=== PATIENT | male | born 1975 | race Caucasian/White ===

== ENCOUNTER 2017-11-10 20:40 | Observation (INO) | payer OTHER ==
[2017-11-10] MEDS ORDERED: Sodium Chloride 0.9% 1,000 ML IV ONE (20:48)
[2017-11-10] MEDS ORDERED: Aspirin 81 MG Tab.Chew PO ONE (20:48)
--- NOTE | 2017-11-10 20:52 | EDM.PDOC ---
ED HPI GENERAL MEDICAL PROBLEM - General Stated Complaint: CHEST PAIN Time Seen by Provider: 11/10/17 20:47 Source of Information: Reports: Patient History Limitations: Reports: No Limitations - History of Present Illness INITIAL COMMENTS - FREE TEXT/NARRATIVE: HISTORY AND PHYSICAL: History of present illness: Patient is a 42-year-old male who presents to the emergency room today with complaints of chest pain, nausea and shortness of breath 45 minutes prior to arrival. The chest pain is mid/left sternal chest pain that does not radiate into the neck, shoulder or back. Denies any headache, change in vision, diaphoresis, abdominal pain, vomiting or diarrhea. Patient states he has never been evaluated for chest pain previously. He states that "occasionally will get fluttering in my chest" which he states resolves within several seconds. Has a history of hypertension. Current BP is 204/124 upon arrival. 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 I usually can sit down and relax a while and it will go down enough to pass". He states he has not seen a primary care doctor in many years. He has never been prescribed any antihypertensive medications. Has no history of any other medical problems. Does use chewing tobacco daily x 30 years. Does not know is father's family health history. But no known family history of heart disease. Review of systems: As per history of present illness and below otherwise all systems reviewed and negative. Past medical history: As per history of present illness and as reviewed below otherwise noncontributory. Surgical history: As per history of present illness and as reviewed below otherwise noncontributory. Social history: No reported history of drug or alcohol abuse. Family history: As per history of present illness and as reviewed below otherwise noncontributory. Physical exam: Gen.: Well-developed and well-nourished 42-year-old male. Alert and oriented. Appears in no acute distress. HEENT: Atraumatic, normocephalic, pupils reactive, negative for conjunctival pallor or scleral icterus, mucous membranes moist, throat clear, neck supple, nontender, trachea midline. Lungs: Clear to auscultation, breath sounds equal bilaterally, chest nontender. Heart: S1S2, regular rate and rhythm without overt murmurs Abdomen: Soft, nondistended, nontender. Negative for masses or hepatosplenomegaly. Negative for costovertebral tenderness. Pelvis: Stable nontender. Genitourinary: Deferred. Rectal: Deferred. Extremities: Atraumatic, moves all extremities per self with full range of motion without difficulty or deficits, negative for cords or calf pain. Neurovascular unremarkable. Neuro: Awake, alert, oriented. Cranial nerves II through XII unremarkable. Cerebellum unremarkable. Motor and sensory unremarkable throughout. Exam nonfocal. After receiving the 3 doses of nitroglycerin his pain has gone from a 5 out of 10-3 out of 10. Current blood pressure is 166/116. Patient states he is happy with that result/reading as "it hasn't been that low in a long time". Vasotec 1.25 mg as been ordered. We'll continue to monitor vitals. Lab results are still pending. CBC, CMP, and troponin are negative. EKG was reviewed by me and Dr. Shepherd. CXR Current blood pressure is 168/105. Patient states that his pain "comes and goes ". At this time I did offer the patient and admission for chest pain rule out VA. He does have risk factors, and would feel more comfortable keeping him as an observation. Especially with his elevated blood pressure. Patient states he needs time to think and has to call his boss at this time. Patient is agreeable to stay overnight for observation. Her Adama was consulted on this case. He is agreeable to admit this patient for observation Diagnostics: CBC, CMP, troponin, EKG, one view chest Therapeutics: endorsement clerk, IV fluid, aspirin, nitroglycerin sublingual 3 doses Vasotec IV Impression: Chest pain, rule out VA Plan: Dr. Galan has agreed to admit this patient for observation on telemetry Definitive disposition and diagnosis as appropriate pending reevaluation and review of above. Onset: Today Duration: Minutes: (45 minutes prior to arrival) Location: Reports: Chest Improves with: Reports: None Worsens with: Reports: None Associated Symptoms: Reports: Chest Pain, Nausea/Vomiting, Shortness of Breath. Denies: Confusion, Cough, cough w sputum, Diaphoresis, Fever/Chills, Headaches , Loss of Appetite, Malaise, Rash, Seizure, Syncope, Weakness Treatments SUB ACUTE CARE NURSE: Denies: Aspirin chest Pain Score (Numeric/FACES): 6 - Related Data Allergies Allergy/AdvReac Type Severity Reaction Status Date / Time onion Allergy Swelling Verified 11/10/17 20:52 Home Meds: Home Meds . [No Known Home Meds] 11/10/17 [History] ED ROS GENERAL - Review of Systems Review Of Systems: ROS reveals no pertinent complaints other than HPI. ED EXAM, GENERAL - Physical Exam Exam: See Below (See dictation) Course - Vital Signs Last Recorded V/S: Last Vital Signs Temp 97 F 11/10/17 20:52 Pulse 82 11/10/17 21:53 Resp 18 11/10/17 21:53 BP 166/102 H 11/10/17 21:53 Pulse Ox 97 11/10/17 21:53 - Orders/Labs/Meds Orders: Active Orders 24 hr Category Date Time Status Admission Status [Patient Status] [ADT] Stat ADT 11/10/17 21:55 Ordered EKG Documentation Completion [RC] STAT Care 11/10/17 20:48 Active Chest 1V Frontal [CR] Stat Exams 11/10/17 20:48 Taken TROPONIN I [CHEM] Timed Lab 11/11/17 03:00 Ordered TROPONIN I [CHEM] Timed Lab 11/11/17 09:00 Ordered Labs: Laboratory Tests 11/10/17 11/10/17 Range/Units 20:50 20:50 WBC 7.00 (4.0-11.0) K/uL RBC 4.97 (4.50-5.90) M/uL Hgb 14.9 (13.0-17.0) g/dL Hct 44.6 (38.0-50.0) % MCV 89.7 (80.0-98.0) fL MCH 30.0 (27.0-32.0) pg MCHC 33.4 (31.0-37.0) g/dL RDW Std Deviation 43.1 (28.0-62.0) fl RDW Coeff of Barbra 13 (11.0-15.0) % Plt Count 203 (150-400) K/uL MPV 9.70 (7.40-12.00) fL Neut % (Auto) 55.1 (48.0-80.0) % Lymph % (Auto) 30.9 (16.0-40.0) % [place] % (Auto) 11.3 (0.0-15.0) % Eos % (Auto) 2.3 (0.0-7.0) % Baso % (Auto) 0.4 (0.0-1.5) % Neut # (Auto) 3.9 (1.4-5.7) K/uL Lymph # (Auto) 2.2 (0.6-2.4) K/uL [place] # (Auto) 0.8 (0.0-0.8) K/uL Eos # (Auto) 0.2 (0.0-0.7) K/uL Baso # (Auto) 0.0 (0.0-0.1) K/uL Nucleated RBC % 0.0 /100WBC Nucleated RBCs # 0 K/uL Sodium 141 (136-146) mmol/L Potassium 4.3 (3.5-5.1) mmol/L Chloride 106 (98-110) mmol/L Carbon Dioxide 25 (21-31) mmol/L BUN 13 (6.0-23.0) mg/dL Creatinine 1.3 (0.6-1.5) mg/dL Est Cr Clr Drug Dosing 77.23 mL/min Estimated GFR (MDRD) 60.0 ml/min Glucose 103 (60-110) mg/dL Calcium 9.2 (8.8-10.8) mg/dL Total Bilirubin 0.4 (0.1-1.5) mg/dL AST 22 (5-40) IU/L ALT 29 (8-54) IU/L Alkaline Phosphatase 92 (40-150) Troponin I < 0.10 (0.0-0.29) NG/ML Total Protein 7.7 (6.0-8.0) g/dL Albumin 4.2 (3.5-5.0) g/dL Globulin 3.5 (2.0-3.5) g/dL Albumin/Globulin Ratio 1.2 L (1.3-2.8) Meds: Medications Discontinued Medications Generic Name Dose Route Start Last Admin Trade Name Freq PRN Reason Stop Dose Admin Aspirin 324 mg 11/10/17 20:48 11/10/17 20:57 Aspirin PO 11/10/17 20:49 324 mg ONETIME ONE Administration Enalaprilat 1.25 mg 11/10/17 21:11 11/10/17 21:17 Vasotec Iv IVPUSH 11/10/17 21:12 1.25 mg ONETIME ONE Administration Sodium Chloride 1,000 mls @ 999 mls/hr 11/10/17 20:48 11/10/17 21:02 Normal Saline IV 11/10/17 21:48 999 mls/hr STAT ONE Administration Morphine Sulfate 2 mg 11/10/17 21:09 Morphine IV 11/10/17 21:10 ONETIME ONE Nitroglycerin 0.4 mg 11/10/17 20:53 11/10/17 21:06 Nitrostat SL 0.4 mg Q5M PRN Administration Chest Pain Departure - Departure Time of Disposition: 21:58 Disposition: Refer to Observation Clinical Impression: Chest pain, rule out acute myocardial infarction Hypertension Qualifiers: Hypertension type: essential hypertension Qualified Code(s): I10 - Essential ( primary) hypertension Referrals: PCP,None [Primary Care Provider] - - My Orders Last 24 Hours: My Active Orders 11/10/17 20:48 EKG Documentation Completion [RC] STAT Chest 1V Frontal [CR] Stat 11/10/17 21:55 Admission Status [Patient Status] [ADT] Stat 11/11/17 03:00 TROPONIN I [CHEM] Timed 11/11/17 09:00 TROPONIN I [CHEM] Timed - Assessment/Plan Last 24 Hours: My Active Orders 11/10/17 20:48 EKG Documentation Completion [RC] STAT Chest 1V Frontal [CR] Stat 11/10/17 21:55 Admission Status [Patient Status] [ADT] Stat 11/11/17 03:00 TROPONIN I [CHEM] Timed 11/11/17 09:00 TROPONIN I [CHEM] Timed
[2017-11-10] MEDS: Nitroglycerin 0.4 MG Tab.SL SL PRN ×3 (20:58→21:06)
[2017-11-10] MEDS ORDERED: Morphine 10 MG/ML Syringe IV ONE (21:09)
[2017-11-10] MEDS ORDERED: Enalaprilat 1.25 MG/ML SDV IVPUSH ONE (21:11)
[2017-11-10 21:26] LABS: CHLORIDE,CL 106 mmol/L (98-110); SODIUM,NA 141 mmol/L (136-146)
--- NOTE | 2017-11-11 08:01 | PCM.HP ---
H&P History of Present Illness - General Date of Service: 11/11/17 Admit Problem/Dx: Admission Diagnosis/Problem Admission Diagnosis/Problem Chest pain, rule out acute myocardial infarction Source of Information: Patient History Limitations: Reports: No Limitations - History of Present Illness Initial Comments - Free Text/Narative: This 42 ev old male with little pmh presented to the ED with concerns of midsternal chest pain that started around 8 pm that night. He reports he was sitting, not doing anything and started having sharp pain to his L anterior chest, that radiated to his LUQ and flank area then it settled in L anterior chest. He reported some nausea no vomiting, no SOB, no diaphoresis and no radiation to neck, jaw or L arm. The pain was relieved only by SL Nitro given in the ED, otherwise nothing else was helping his pain. He reports heartburn intermittently at home, but doesn't take anything daily for this, happens with choices in foods. He denies personal and family history of CAD, he is unaware of his paternal family history though. He reports having elevated BP "for years " but has never been started on anything and normal reports relaxing at DOT appointments and then he is able to pass. He has not seen a PCP in years. He reports social alcohol use. He chews daily and denies wanting to stop. In the ED labwork all WNL troponin negative. EKG SR no ST segment changes. BP was noted to be 204/104 on dmission to ED, it dropped to 150-160/90s with SL nitro. He was also given Vasotec in the ED as well. CXR negative. He was admitted for chets pain R/O ACS. chest Pain Score (Numeric/FACES): 5 - Related Data Allergies/Adverse Reactions: Allergies Allergy/AdvReac Type Severity Reaction Status Date / Time onion Allergy Swelling Verified 11/10/17 20:52 Home Medications: Home Meds Aspirin 81 mg PO DAILY #30 tab.chew 11/11/17 [Rx] Lisinopril [Prinivil] 10 mg PO DAILY #30 tablet 11/11/17 [Rx] Past Medical History HEENT History: Reports: None Cardiovascular History: Reports: Hypertension (never been treated for this.). Denies: Blood Clots/VTE/DVT, CAD, Heart Failure, High Cholesterol Respiratory History: Reports: None. Denies: COPD, PE Gastrointestinal History: Reports: None Genitourinary History: Reports: None Musculoskeletal History: Reports: None Neurological History: Reports: None Psychiatric History: Reports: Anxiety Endocrine/Metabolic History: Reports: None Hematologic History: Reports: None Immunologic History: Reports: None Oncologic (Cancer) History: Reports: None Dermatologic History: Reports: None - Infectious Disease History Infectious Disease History: Reports: None - Past Surgical History Musculoskeletal Surgical History: Reports: Shoulder Surgery Social & Family History - Family History Family Medical History: Noncontributory - Tobacco Use Smoking Status *Q: Never Smoker - Caffeine Use Caffeine Use: Reports: Coffee - Alcohol Use Days Per Week of Alcohol Use: 4 Number of Drinks Per Day: 2 Total Drinks Per Week: 8 - Recreational Drug Use Recreational Drug Use: No - Living Situation & Occupation Living situation: Reports: 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 Denies: Fever, Chills, Malaise, Weakness HEENT: Reports: No Symptoms. Denies: Headaches, Sinus Congestion, Sore Throat Pulmonary: Denies: Shortness of Breath, Wheezing, Cough, Sputum Cardiovascular: Reports: Chest Pain (on admission, no longer having. Did have sharp pain with sneezing.). Denies: Palpitations, Dyspnea on Exertion, Edema, Lightheadedness Gastrointestinal: Reports: No Symptoms. Denies: Black Stool, Bloody Stool, Distension, Flatus, Nausea, Vomiting Genitourinary: Reports: No Symptoms. Denies: Dysuria, Frequency Musculoskeletal: Reports: No Symptoms. Denies: Neck Pain, Shoulder Pain Psychiatric: Reports: No Symptoms. Denies: Confusion Hematologic/Lymphatic: Reports: No Symptoms. Denies: Anemia Exam - Exam Exam: See Below - Vital Signs Vital Signs: Last Vital Signs Temp 98.2 F 11/11/17 04:00 Pulse 61 11/11/17 04:00 Resp 18 11/11/17 04:00 BP 154/96 H 11/11/17 04:00 Pulse Ox 95 11/11/17 04:00 Weight: 129.501 kg - Exam General: Alert, Oriented, Cooperative HEENT: Conjunctiva Clear, Mucosa Moist & [employer], Posterior Pharynx Clear, Pupils Reactive Neck: Supple, Trachea Midline Lungs: Clear to Auscultation, Normal Respiratory Effort Cardiovascular: Regular Rate, Regular Rhythm, Normal S1, Normal S2, Other ( tenderness noted to L anterior chest to palpation, which reproduces pain he was feeling, but at a lower level now. ) GI/Abdominal Exam: Normal Bowel Sounds, Soft, Non-Tender, No Organomegaly, No Distention, No Abnormal Bruit, No Mass, Pelvis Stable Extremities: Normal Inspection, Normal Range of Motion, Non-Tender, No Pedal Edema, Normal Capillary Refill Neurological: Cranial Nerves Intact Neuro Extensive - Mental Status: Alert, Oriented x3 Neuro Extensive - Motor, Sensory, Reflexes: CN II-XII Intact, Normal Gait, Normal Reflexes Psychiatric: Alert, Normal Affect, Normal Mood - Patient Data Lab Results Last 24 hrs: Laboratory Results - last 24 hr 11/11/17 Range/Units 01:53 Troponin I < 0.10 (0.0-0.29) NG/ML Result Diagrams: 11/10/17 20:50 11/10/17 20:50 EKG INTERPRETATION EKG Date: 11/10/17 Rhythm: NSR P-Wave: Present QRS: Normal ST-T: Normal QT: Normal *Q Meaningful Use (ADM) - VTE *Q VTE Criteria *Q: - Stroke *Q Stroke Criteria *Q: - AMI *Q AMI Criteria *Q: - Problem List (1) Chest pain, rule out acute myocardial infarction SNOMED Code(s): 64027251 ICD Code: R07.9 - CHEST PAIN, UNSPECIFIED Status: Acute Current Visit: Yes (2) Hypertension SNOMED Code(s): 96571041 ICD Code: I10 - ESSENTIAL (PRIMARY) HYPERTENSION Status: Acute Current Visit: Yes Qualifiers: Hypertension type: essential hypertension Qualified Code(s): I10 - Essential (primary) hypertension (3) Obesity (BMI 30-39.9) SNOMED Code(s): 337040714 ICD Code: E66.9 - OBESITY, UNSPECIFIED Status: Acute Current Visit: Yes Problem List Initiated/Reviewed/Updated: Yes Orders Last 24hrs: Active Orders 24 hr Category Date Time Status Telemetry Monitoring [Cardiac Monitoring] [RC] Q8H Care 11/10/17 22:24 Active Regular Diet [DIET] Diet 11/11/17 Breakfast Active GLYCOSYLATED HEMOGLOBIN,HGBA1C [CHEM] Routine Lab 11/11/17 07:54 Ordered LIPID PANEL [CHEM] Routine Lab 11/11/17 07:54 Ordered Aspirin Med 11/11/17 09:00 Ordered 81 mg PO DAILY Lisinopril [Prinivil] Med 11/11/17 09:00 Ordered 10 mg PO DAILY Medication Orders Aspirin (Aspirin) 81 mg PO DAILY XIOMARA Lisinopril (Prinivil) 10 mg PO DAILY [facility] Assessment/Plan Comment:: This 42 year old male admitted with chest pain, R/O ACS 1. Chest pain: No longer having. Was reproducible with palpation to anterior L chest. All troponins negative. Telemetry remained SR with no ST segment changes. Lipid panel Triglycerides 96, Total 169, LDL 96 and HDL 54. A1c 5.9. Discharge Plan: Alan was monitored overnight. ACS ruled out with negative troponins and no return of chest pain. Chest pain was reproducible to palpation of L chest. BP remained elevated, but patient is asymptomatic. BPs 150-160/90s. I started Lisinopril 10 mg and encouraged him to make some lifestyle changes in regards to eating healthier, more plant based, exercising and stopping chewing tobacco. He was encouraged to continue taking ASA 81 mg daily. He again was encouraged to stop chewing, but he responded, "That is not going to happen." Patient will be set up with outpatient stress test and with PCP follow up. He will continue on Lisinopril. He is to return to ED or clinic is concerns should arise.
[2017-11-11] MEDS ORDERED: Lisinopril 10 MG Tab PO SCH (09:00)
[2017-11-11] MEDS ORDERED: Aspirin 81 MG Tab.Chew PO SCH (09:00)
--- NOTE | 2017-11-11 09:28 | CR ---
EXAM DATE: 11/10/17 PATIENT'S AGE: 42 Patient: TATE CHAU Facility: [place], [place] Site . Site : [id number] Study: XRay Chest [id number] 9:16:01 PM Ordering Physician: Herve Alvarez Final Report: INDICATION: chest pain, sob TECHNIQUE: Chest 1 view COMPARISON: None FINDINGS: Cardiovascular and mediastinum: Heart size and vasculature are normal in caliber and appearance. Mediastinum is within normal limits. Lungs and pleural space: No focal consolidation. No sign of pleural effusion. No pneumothorax. Bones: Bone anchors noted within the imaged left glenohumeral joint. IMPRESSION: No acute cardiopulmonary disease. Dictated by Mendoza Kay MD @ 11/10/2017 10:24:01 PM Dictated by: Mendoza Kay MD @ 11/10/2017 22:24:11 (Electronic Signature) Report Signed by Proxy. [facility] CENTERJewel
== END 2017-11-11 09:56 | disposition home or self-care (01) ==
LOC: MW.ED 20:40 → MW.MS 21:55 → UNDODISOB 11-11 09:56
PROVIDERS: ADMIT Family Medicine; ATTEND Family Medicine
DX: R07.2 Precordial pain (principal); I10 Essential (primary) hypertension; F41.9 Anxiety disorder, unspecified; E66.9 Obesity, unspecified; Z68.39 Body mass index [BMI] 39.0-39.9, adult; Z91.018 Allergy to other foods; Z98.890 Other specified postprocedural states
CPT/HCPCS: 36415; 71010; 80053; 80061; 83036; 84484; 85025; 96361; 96374; 99285; A9270; G0378; J7040

== ENCOUNTER 2021-05-17 13:59 | Emergency (ER) | payer BC, OTHER ==
[2021-05-17] MEDS ORDERED: Lisinopril/Hydrochlorothiazide 10-12.5 MG Tab PO ONE (14:21)
--- NOTE | 2021-05-17 14:25 | EDM.PDOC ---
ED HPI GENERAL MEDICAL PROBLEM - General Chief Complaint: Cardiovascular Problem Stated Complaint: HIGH BLOOD PRESSURE Time Seen by Provider: 05/17/21 14:04 Source of Information: Reports: Patient History Limitations: Reports: No Limitations - History of Present Illness INITIAL COMMENTS - FREE TEXT/NARRATIVE: Patient is a 45-year-old male who was sent over from clinic for elevated blood pressure. Patient states that he has history of high blood pressure and stopped taking his meds about a month ago because he thought he did not need it. Patient otherwise denies any chest pain vision changes headaches any numbness weakness in his extremities or other complaints. - Related Data Allergies Allergy/AdvReac Type Severity Reaction Status Date / Time onion Allergy Swelling Verified 05/17/21 14:42 Home Meds: Home Meds Aspirin 81 mg PO DAILY #30 tab.chew 11/11/17 [Rx] Valsartan/Hydrochlorothiazide [Valsartan-Hctz 160-25 mg Tab] 05/17/21 [History] amLODIPine [Norvasc] 05/17/21 [History] Past Medical History HEENT History: Reports: None Cardiovascular History: Reports: Hypertension (never been treated for this.). Denies: Blood Clots/VTE/DVT, CAD, Heart Failure, High Cholesterol Respiratory History: Reports: None. Denies: COPD, PE Gastrointestinal History: Reports: None Genitourinary History: Reports: None Musculoskeletal History: Reports: None Neurological History: Reports: None Psychiatric History: Reports: Anxiety Endocrine/Metabolic History: Reports: None Hematologic History: Reports: None Immunologic History: Reports: None Oncologic (Cancer) History: Reports: None Dermatologic History: Reports: None - Infectious Disease History Infectious Disease History: Reports: None - Past Surgical History Musculoskeletal Surgical History: Reports: Shoulder Surgery Social & Family History - Family History Family Medical History: No Pertinent Family History - Caffeine Use Caffeine Use: Reports: Coffee - Living Situation & Occupation Living situation: Reports: 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[employer]) ED ROS GENERAL - Review of Systems Review Of Systems: See Below Constitutional: Reports: No Symptoms HEENT: Reports: No Symptoms Respiratory: Reports: No Symptoms Cardiovascular: Reports: No Symptoms Endocrine: Reports: No Symptoms GI/Abdominal: Reports: No Symptoms : Reports: No Symptoms Musculoskeletal: Reports: No Symptoms Skin: Reports: No Symptoms Neurological: Reports: No Symptoms Psychiatric: Reports: No Symptoms Hematologic/Lymphatic: Reports: No Symptoms Immunologic: Reports: No Symptoms ED EXAM, GENERAL - Physical Exam Exam: See Below Exam Limited By: No Limitations General Appearance: Alert, WD/WN, No Apparent Distress Eye Exam: Bilateral Eye: EOMI, PERRL Respiratory/Chest: No Respiratory Distress, Lungs Clear, Normal Breath Sounds Cardiovascular: Normal Peripheral Pulses, Regular Rate, Rhythm GI/Abdominal: Normal Bowel Sounds, Soft, Non-Tender Extremities: Normal Inspection, Normal Range of Motion Neurological: Alert, Oriented, CN II-XII Intact, Normal Cognition, Normal Gait #1 Interpretation EKG Date: 05/17/21 Time: 14:12 Rhythm: NSR Rate (Beats/Min): 72 ST-T: Normal Course - Vital Signs Last Recorded V/S: Last Vital Signs Temp 98.2 F 05/17/21 14:00 Pulse 74 05/17/21 15:32 Resp 18 05/17/21 15:32 BP 181/122 H 05/17/21 15:32 Pulse Ox 98 05/17/21 15:32 - Orders/Labs/Meds Labs: Laboratory Tests 05/17/21 05/17/21 05/17/21 Range/Units 14:42 14:42 14:43 WBC 7.16 (4.0-11.0) K/uL RBC 5.13 (4.50-5.90) M/uL Hgb 15.6 (13.0-17.0) g/dL Hct 45.5 (38.0-50.0) % MCV 88.7 (80.0-98.0) fL MCH 30.4 (27.0-32.0) pg MCHC 34.3 (31.0-37.0) g/dL RDW Std Deviation 41.6 (28.0-62.0) fl RDW Coeff of Barbra 13 (11.0-15.0) % Plt Count 180 (150-400) K/uL MPV 9.60 (7.40-12.00) fL Neut % (Auto) 61.8 (48.0-80.0) % Lymph % (Auto) 22.9 (16.0-40.0) % [place] % (Auto) 12.7 (0.0-15.0) % Eos % (Auto) 2.2 (0.0-7.0) % Baso % (Auto) 0.4 (0.0-1.5) % Neut # (Auto) 4.4 (1.4-5.7) K/uL Lymph # (Auto) 1.6 (0.6-2.4) K/uL [place] # (Auto) 0.9 H (0.0-0.8) K/uL Eos # (Auto) 0.2 (0.0-0.7) K/uL Baso # (Auto) 0.0 (0.0-0.1) K/uL Sodium 137 (136-148) mmol/L Potassium 4.1 (3.5-5.1) mmol/L Chloride 101 (98-107) mmol/L Carbon Dioxide 28.7 (21.0-32.0) mmol/L BUN 14 (7.0-18.0) mg/dL Creatinine 1.1 (0.8-1.3) mg/dL Est Cr Clr Drug Dosing 88.42 mL/min Estimated GFR (MDRD) > 60.0 ml/min Glucose 96 (74-106) mg/dL Calcium 8.9 (8.5-10.1) mg/dL Total Bilirubin 0.4 (0.2-1.0) mg/dL AST 19 (15-37) IU/L ALT 29 (14-63) IU/L Alkaline Phosphatase 68 (46-116) U/L Creatine Kinase 93 (26-308) U/L Troponin I < 0.050 (0.000-0.056) ng/mL Total Protein 7.5 (6.4-8.2) g/dL Albumin 3.8 (3.4-5.0) g/dL Globulin 3.7 (2.6-4.0) g/dL Albumin/Globulin Ratio 1.0 (0.9-1.6) Urine Color YELLOW Urine Appearance CLEAR Urine pH 6.0 (5.0-8.0) Ur Specific [place] >= 1.030 (1.001-1.035) Urine Protein NEGATIVE (NEGATIVE) mg/dL Urine Glucose (UA) NEGATIVE (NEGATIVE) mg/dL Urine Ketones NEGATIVE (NEGATIVE) mg/dL Urine Occult Blood TRACE-INTACT H (NEGATIVE) Urine Nitrite NEGATIVE (NEGATIVE) Urine Bilirubin NEGATIVE (NEGATIVE) Urine Urobilinogen 0.2 (<2.0) EU/dL Ur Leukocyte Esterase NEGATIVE (NEGATIVE) Urine RBC 0-2 (0-2/HPF) Urine WBC 0-1 (0-5/HPF) Ur Epithelial Cells RARE (NONE-FEW) Urine Bacteria FEW (NEGATIVE) Meds: Medications Discontinued Medications Generic Name Dose Route Start Last Admin Trade Name Freq PRN Reason Stop Dose Admin Amlodipine Besylate 5 mg 05/17/21 14:35 05/17/21 15:07 Amlodipine 5 Mg Tab PO 05/17/21 14:36 5 mg ONETIME ONE Administration Lisinopril/HCTZ 1 tab 05/17/21 14:21 05/17/21 14:46 Lisinopril/Hydrochlorothiazide 10-12.5 Mg Tab PO 05/17/21 14:22 Not Given ONETIME ONE Hydrochlorothiazide 25 mg 05/17/21 14:35 05/17/21 15:07 Hydrochlorothiazide 25 Mg Tab PO 05/17/21 14:36 25 mg ONETIME ONE Administration Valsartan 80 mg 05/17/21 14:35 05/17/21 15:31 Valsartan 80 Mg Tab PO 05/17/21 14:36 80 mg ONETIME ONE Administration - Re-Assessments/Exams Free Text/Narrative Re-Assessment/Exam: 05/17/21 15:41 Review patient remained asymptomatic. Patient will be discharged home where he will resume his blood pressure medication he states he has 2 months left at home does not any refills. Departure - Departure Time of Disposition: 15:42 Disposition: Home, Self-Care 01 Condition: Good Clinical Impression: Asymptomatic hypertension Instructions: Hypertension, Adult, [id number] Referrals: Negro Bah MD [Primary Care Provider] - Forms: ED Department Discharge Additional Instructions: The following information is given to patients seen in the emergency department who are being discharged to home. This information is to outline your options for follow-up care. We provide all patients seen in our emergency department with a follow-up referral. The need for follow-up, as well as the timing and circumstances, are variable depending upon the specifics of your emergency department visit. If you don't have a primary care physician on staff, we will provide you with a referral. We always advise you to contact your personal physician following an emergency department visit to inform them of the circumstance of the visit and for follow-up with them and/or the need for any referrals to a consulting specialist. The emergency department will also refer you to a specialist when appropriate. This referral assures that you have the opportunity for follow-up care with a specialist. All of these measure are taken in an effort to provide you with optimal care, which includes your follow-up. Under all circumstances we always encourage you to contact your private physician who remains a resource for coordinating your care. When calling for fo llow-up care, please make the office aware that this follow-up is from your recent emergency room visit. If for any reason you are refused follow-up, please contact the [facility] Emergency Department at and asked to speak to the emergency department charge nurse. Please follow up with your primary care physician. If you do not have a primary care physician, see below: [facility] [address] [place] [id number] [facility] [address] [place] [address] You are seen today for elevated blood pressure. You do not have any symptoms. We did labs x-rays and EKGs. They are within normal limits. Recommend you follow-up with your primary care physician and continue to take your blood pressure medication. Please follow with your primary care physician if you have any other external signs symptoms please return to the ED. Sepsis Event Note (ED) - Focused Exam Vital Signs: Vital Signs Temp Pulse Resp BP BP Pulse Ox 05/17/21 15:32 74 18 181/122 H 98 05/17/21 15:31 181/122 H 05/17/21 15:08 88 18 189/117 H 98 05/17/21 15:07 189/117 H 05/17/21 14:48 77 18 182/112 H 98 05/17/21 14:00 98.2 F 80 18 196/127 H 98 - Assessment/Plan Plan: Patient is a 45-year-old male who presents today for aches and symptomatic hypertension. Patient states of high blood pressure but stopped his medications a month ago. Patient was at cardiology clinic for his blood pressure control and was told to have elevated blood pressures and here. Patient has no complaints right now will obtain labs x-ray EKG and provide home blood medication dose.
[2021-05-17] MEDS ORDERED: amLODIPine 5 MG Tab PO ONE (14:35)
[2021-05-17] MEDS ORDERED: Hydrochlorothiazide 25 MG Tab PO ONE (14:35)
[2021-05-17 15:26] LABS: BLOOD UREA NITROGEN,BUN 14 mg/dL (7.0-18.0); CARBON DIOXIDE,CO2 28.7 mmol/L (21.0-32.0); CHLORIDE,CL 101 mmol/L (98-107); GLUCOSE RANDOM 96 mg/dL (74-106); POTASSIUM,K 4.1 mmol/L (3.5-5.1); SODIUM,NA 137 mmol/L (136-148)
--- NOTE | 2021-05-17 15:27 | CR ---
Indication: Hypertension Technique: Chest 1 view Comparison: November 10, 2017 Findings/Impression: Cardiac size within normal limits. Normal pulmonary vasculature. Clear lungs and pleural spaces. Surgical anchors in the left scapula. Dictated by April Chahal MD @ 05/17/2021 3:25:[address] April Chahal @ May 17 2021 3:25PM
== END 2021-05-17 16:02 | disposition home or self-care (01) ==
LOC: MW.ED 13:59
DX: I10 Essential (primary) hypertension (principal); Z91.018 Allergy to other foods
CPT/HCPCS: 71045; 80053; 81001; 82550; 84484; 85025; 93005; 99284; A9270

== ENCOUNTER 2022-08-31 10:55 | Emergency (ER) | payer BC ==
[2022-08-31] MEDS ORDERED: Ondansetron 4 MG/2 ML SDV IVPUSH ONE (11:58)
[2022-08-31] MEDS ORDERED: HYDROmorphone 1 MG/ML Syringe IV ONE (11:58)
[2022-08-31] MEDS ORDERED: Sodium Chloride 0.9% 1,000 ML IV ONE (11:58)
[2022-08-31] MEDS ORDERED: Iopamidol 755 Mg/ML 100 ML Bottle IV ONE (13:15)
== END 2022-08-31 14:45 | disposition home or self-care (01) ==
LOC: MW.ED 10:55
DX: K42.9 Umbilical hernia without obstruction or gangrene (principal)
CPT/HCPCS: 74177; 96361; 96374; 96375; 99284; J1170; J2405; J7030; Q9967